=== PATIENT | male | born 1970 | race Caucasian/White ===

== ENCOUNTER 2018-12-01 21:45 | Emergency (ER) | payer OTHER ==
[~2018-12-01] VITALS: Ht 185.4 cm; Wt 117.9 kg
[2018-12-01] MEDS ORDERED: COZAAR25 MG (22:20)
[2018-12-01] MEDS ORDERED: NORVASC10 MG (22:21)
== END 2018-12-02 00:08 | disposition home or self-care (01) ==
LOC: ER 21:45
DX: N34.2 Other urethritis (principal)